=== PATIENT | male | born 1965 | race Caucasian/White ===

== ENCOUNTER → 2020-08-29 | Outpatient (CLI) | payer MEDICAID ==
[~2020-08-29] MED LIST: NONE PER PT
[2020-08-29 15:51] LABS: BASOPHILS % (AUTO) 1 % (0-1); EOSINOPHILS % (AUTO) 1 % (1-7); LYMPHOCYTES % (AUTO) 36 % (22-44); MEAN CORPUSCULAR HEMOGLOBIN 30.6 pg (27.5-34.5); MEAN CORPUSCULAR HGB CONC 33.6 g/dL (33.2-36.2); MEAN PLATELET VOLUME 8.1 fL (7.4-10.4); MONOCYTES % (AUTO) 6 % (2-9); NEUTROPHILS % (AUTO) 56 % (42-75); PLATELET COUNT 223 x10^3/uL (130-400); RED BLOOD COUNT 4.52 x10^6/uL (4.38-5.82); RED CELL DISTRIBUTION WIDTH 13.7 % (9.4-14.8)
[2020-08-29 15:53] LABS: MD NO
[2020-08-29 15:59] LABS: ANION GAP 7 mmol/L (5-15); CALCIUM 8.8 mg/dL (8.5-10.1); CHLORIDE 111 mmol/L (98-107); CREATININE 1.34 mg/dL (0.7-1.3); INTERNATIONAL NORMALIZED RATIO 0.97 (0.93-1.1); PROTHROMBIN TIME 10.3 Seconds (9.6-11.5)
== END | disposition home or self-care (01) ==
LOC: STAR 14:29
PROVIDERS: ATTEND Orthopaedic Surgery
DX: Z01.812 Encounter for preprocedural laboratory examination (principal); Z20.828 Contact with and (suspected) exposure to other viral communicable diseases; M17.11 Unilateral primary osteoarthritis, right knee; Z79.01 Long term (current) use of anticoagulants
CPT/HCPCS: 36415; 80048; 83036; 85025; 85610; 85730; 87081; 87635

== ENCOUNTER 2020-09-03 08:45 | Day surgery (SDC) | payer MEDICAID ==
[~2020-09-03] VITALS: Ht 182.9 cm; Wt 116.0 kg
[~2020-09-03 08:45] MED LIST changes: +BISACODYL 10 MG SUPP PR PRN; +DIPHENHYDRAMINE 25 MG CAPSULE PO PRN; +HYDROcodone/APAP 5/325 TABLET PO PRN; +HYDROmorphone 1 MG/ML, 1ML INJ IV PRN; +MAGNESIUM HYDROXIDE 8%, 30ML UDC PO PRN; +ONDANSETRON 2MG/ML, 2ML IV PRN; +ONDANSETRON 4 MG TABLET PO PRN; +OXYcodone IR 5MG TABLET PO PRN; +SENNA/DOCUSATE TABLET PO PRN; +ZOLPIDEM 5MG TABLET PO PRN
[2020-09-03] MEDS ORDERED: FENTANYL PF 250 MCG/5ML ONE (08:47)
[2020-09-03] MEDS ORDERED: MIDAZOLAM 1 MG/ML, 2ML ONE (08:47)
[2020-09-03] MEDS ORDERED: DOCUSATE 100 MG CAPSULE PO SCH (09:00)
[2020-09-03] MEDS ORDERED: CHLORHEXIDINE 15 ML UDC ONE (09:17)
[2020-09-03] MEDS ORDERED: GABAPENTIN 300 MG CAPSULE PO ONE (09:30)
[2020-09-03] MEDS ORDERED: ACETAMINOPHEN 500 MG TABLET PO ONE (09:30)
[2020-09-03] MEDS ORDERED: LACTATED RINGERS 1,000 ML IV SCH (09:30)
[2020-09-03] MEDS ORDERED: CHLORHEXIDINE 15 ML UDC MM ONE (09:30)
[2020-09-03] MEDS ORDERED: ACETAMINOPHEN 500 MG TABLET ONE (09:35)
[2020-09-03] MEDS ORDERED: GABAPENTIN 300 MG CAPSULE ONE (09:36)
[2020-09-03] MEDS ORDERED: SODIUM CHLORIDE 0.9% 50 ML ONE (10:10)
[2020-09-03] MEDS ORDERED: VANCOMYCIN 1,000 MG ONE (10:10)
[2020-09-03] MEDS ORDERED: ROPIvacaine/PF 0.5%, 20 ML ONE (10:10)
[2020-09-03] MEDS ORDERED: TRANEXAMIC ACID 100 MG/ML, 10ML ONE ×2 (10:10)
[2020-09-03] MEDS ORDERED: KETOROLAC 60 MG/2 ML ONE (10:10)
[2020-09-03] MEDS ORDERED: ROPIvacaine/PF 0.5%, 30 ML ONE (10:10)
[2020-09-03] MEDS ORDERED: EPINEPHRINE 1 MG/ML, 1ML ONE (10:11)
[2020-09-03] MEDS ORDERED: ROPIvacaine/PF 0.5%, 30 ML INFIL ONE (10:53)
[2020-09-03] MEDS ORDERED: ROPIvacaine/PF 0.5%, 20 ML INFIL ONE (10:53)
[2020-09-03] MEDS ORDERED: EPINEPHRINE 1 MG/ML, 1ML INFIL ONE (10:53)
[2020-09-03] MEDS ORDERED: KETOROLAC 30 MG/1 ML IM ONE (10:53)
[2020-09-03] MEDS ORDERED: DEXAMETHASONE 4 MG/ML, 1ML ONE (11:17)
[2020-09-03] MEDS ORDERED: CEFAZOLIN 1,000 MG ONE ×2 (11:17→11:18)
[2020-09-03] MEDS ORDERED: ONDANSETRON 2MG/ML, 2ML ONE (11:18)
[2020-09-03] MEDS ORDERED: METOPROLOL 1 MG/ML, 5ML ONE (11:18)
[2020-09-03] MEDS ORDERED: PROPOFOL 10 MG/ML, 20ML ONE (11:18)
[2020-09-03] MEDS ORDERED: hydrALAzine 20 MG/ML, 1ML ONE (11:18)
[2020-09-03] MEDS ORDERED: BUPIVACAINE/PF 0.5% ONE (11:27)
[2020-09-03] MEDS ORDERED: LORazepam 2 MG/ML, 1ML IVPush PRN (11:30)
[2020-09-03] MEDS ORDERED: FENTANYL PF 100 MCG/2ML IV PRN (11:30)
[2020-09-03] MEDS ORDERED: ALBUTEROL SULFATE 2.5 MG/3 ML NPPB PRN (11:30)
[2020-09-03] MEDS ORDERED: OXYcodone 5 MG/5 ML ORAL.SOL UDC PO PRN (11:30)
[2020-09-03] MEDS ORDERED: hydrALAzine 20 MG/ML, 1ML IV PRN (11:30)
[2020-09-03] MEDS ORDERED: VANCOMYCIN 1,000 MG IM ONE (11:30)
[2020-09-03] MEDS ORDERED: ACETAMINOPHEN 325 MG TABLET PO PRN ×2 (11:30→15:40)
[2020-09-03] MEDS ORDERED: LABETALOL 5MG/ML, 20ML IV PRN (11:30)
[2020-09-03] MEDS ORDERED: HYDROmorphone 1 MG/ML, 1ML INJ IVPush PRN (11:30)
[2020-09-03] MEDS ORDERED: METHOCARBAMOL 1,000 MG in DEXTROSE 5% 100 ML IV PRN (11:30)
[2020-09-03] MEDS ORDERED: PROMETHAZINE 25 MG/ML, 1ML IVPush PRN (11:30)
[2020-09-03] MEDS ORDERED: MEPERIDINE/PF 25MG/0.5ML IVPush PRN (11:30)
[2020-09-03] MEDS ORDERED: FENTANYL PF 100 MCG/2ML ONE ×2 (12:06→12:34)
[2020-09-03] MEDS ORDERED: MEPERIDINE/PF 25MG/ML,1ML ONE (12:17)
[2020-09-03] MEDS ORDERED: HYDROcodone/APAP 7.5-325MG/15ML UDC ONE (12:17)
[2020-09-03] MEDS ORDERED: DIPHENHYDRAMINE 50 MG/ML, 1ML ONE (12:20)
[2020-09-03] MEDS ORDERED: DIPHENHYDRAMINE 50 MG/ML, 1ML IM PRN (12:30)
[2020-09-03] MEDS ORDERED: HYDROcodone/APAP 7.5-325MG/15ML UDC PO PRN (12:30)
[2020-09-03] MEDS ORDERED: DIAZEPAM 5 MG/ML, 2ML ONE (12:53)
[2020-09-03] MEDS ORDERED: ACETAMINOPHEN 650 MG/20.3 ML UDC PO PRN (12:59)
[2020-09-03] MEDS ORDERED: DIPHENHYDRAMINE 50 MG/ML, 1ML IVPush PRN (13:00)
[2020-09-03] MEDS ORDERED: DIAZEPAM 5 MG/ML, 2ML IVPush PRN (13:00)
[2020-09-03 13:50] VITALS: BP 155/89
[2020-09-03] MEDS ORDERED: NS + 20MEQ KCL 1,000 ML IV SCH (14:36)
[2020-09-03] MEDS ORDERED: TRAM50TA2 PO (16:48)
[2020-09-03] MEDS ORDERED: OXYC5CAP2 PO (16:48)
[2020-09-03] MEDS ORDERED: MELO7.5T5 PO (16:49)
[2020-09-03] MEDS ORDERED: ASPIRIN 81 MG TABLET EC PO SCH (18:00)
[2020-09-03] MEDS ORDERED: CEFAZOLIN PMX 2GM/50ML 50 ML IVPB SCH (19:00)
[2020-09-04] MEDS ORDERED: DEXAMETHASONE 4 MG/ML, 1ML IVPush SCH (06:00)
== END 2020-09-03 18:26 | disposition home or self-care (01) ==
LOC: OUT 08:45 → 2NW 13:50 → OUT 18:26
PROVIDERS: ATTEND Orthopaedic Surgery
DX: M17.11 Unilateral primary osteoarthritis, right knee (principal); M25.761 Osteophyte, right knee; M20.41 Other hammer toe(s) (acquired), right foot; G89.18 Other acute postprocedural pain; E66.9 Obesity, unspecified; Z79.899 Other long term (current) drug therapy; Z88.5 Allergy status to narcotic agent; Z98.890 Other specified postprocedural states; Z82.61 Family history of arthritis
CPT/HCPCS: 27447; 64447; 97161; C1713; C1776; J0171; J0360; J0690; J1100; J1200; J1885; J2175; J2250; J2405; J2704; J2795; J2800; J3010; J3360; J3370; G0378